=== PATIENT | male | born 1950 | race Caucasian/White ===

== ENCOUNTER 2021-03-18 09:04 | Emergency (ER) | payer MEDICARE, OTHER ==
[2021-03-18 10:16] LABS: BASO # 0.01 K/mm3 (0.02-0.10); EOS # 0.01 K/mm3 (0.04-0.40); EOS % 0.3 % (0.0-4.0); HEMATOCRIT 50.5 % (42.0-52.0); HEMOGLOBIN 16.9 g/dL (13.5-18.0); LYMPH# 0.84 K/mm3 (1.50-4.00); MEAN CELL VOLUME 99 fl (78-100); MEAN CORPUSCULAR HEMOGLOBIN 33 pg (27-31); MEAN CORPUSCULAR HGB CONC 34 g/dL (33-37); MEAN PLATELET VOLUME 9.8 fl (7.4-10.4); MONO # 0.37 K/mm3 (0.20-0.80); PLATELET COUNT 152 K/mm3 (130-400); RED BLOOD COUNT 5.11 M/mm3 (4.20-5.60); RED CELL DISTRIBUTION WIDTH 13.3 % (11.5-14.5); WHITE BLOOD COUNT 3.9 K/mm3 (4.8-10.8)
[2021-03-18 10:27] LABS: ALBUMIN 4.3 g/dL (3.4-4.8); POTASSIUM 3.8 mmol/L (3.5-5.1)
[2021-03-18 10:28] LABS: CALCIUM 9.1 mg/dL (8.3-10.5)
[2021-03-18 10:29] LABS: TOTAL PROTEIN 7.9 g/dL (6.2-8.1)
[2021-03-18 10:31] LABS: TOTAL BILIRUBIN 0.6 mg/dL (0.2-1.2)
[2021-03-18] MEDS ORDERED: PROAIR HFA0.09 MG/AC IH (10:39)
[2021-03-18] MEDS ORDERED: VOLTAREN ARTHRI20 GM TP (10:39)
[2021-03-18 10:49] VITALS: BP 132/82
== END 2021-03-18 10:50 | disposition home or self-care (01) ==
LOC: ED 09:04
PROVIDERS: Family Medicine
DX: U07.1 COVID-19 (principal); M94.0 Chondrocostal junction syndrome [Tietze]; I25.10 Atherosclerotic heart disease of native coronary artery without angina pectoris

== ENCOUNTER → 2021-10-26 | Outpatient (CLI) | payer MEDICARE, OTHER ==
[~2021-10-26] MED LIST: PROAIR HFA0.09 MG/AC IH; VOLTAREN ARTHRI20 GM TP
[2021-10-26 12:29] LABS: BASO # 0.03 K/mm3 (0.02-0.10); EOS # 0.35 K/mm3 (0.04-0.40); EOS % 4.9 % (0.0-4.0); HEMATOCRIT 45.3 % (42.0-52.0); HEMOGLOBIN 15.6 g/dL (13.5-18.0); LYMPH# 2.24 K/mm3 (1.50-4.00); MEAN CELL VOLUME 96 fl (78-100); MEAN CORPUSCULAR HEMOGLOBIN 33 pg (27-31); MEAN CORPUSCULAR HGB CONC 34 g/dL (33-37); MEAN PLATELET VOLUME 9.9 fl (7.4-10.4); MONO # 0.76 K/mm3 (0.20-0.80); PLATELET COUNT 203 K/mm3 (130-400); RED BLOOD COUNT 4.73 M/mm3 (4.20-5.60); RED CELL DISTRIBUTION WIDTH 13.1 % (11.5-14.5); WHITE BLOOD COUNT 7.1 K/mm3 (4.8-10.8)
[2021-10-26 12:47] LABS: ALBUMIN 4.2 g/dL (3.4-4.8); POTASSIUM 3.9 mmol/L (3.5-5.1); SODIUM 139 mmol/L (136-145)
[2021-10-26 12:48] LABS: CALCIUM 9.1 mg/dL (8.3-10.5)
[2021-10-26 12:50] LABS: GLUCOSE 98 mg/dL (75-110); TOTAL PROTEIN 7.1 g/dL (6.2-8.1)
[2021-10-26 12:51] LABS: CARBON DIOXIDE 19 mmol/L (23-31)
[2021-10-26 12:52] LABS: TOTAL BILIRUBIN 0.6 mg/dL (0.2-1.2)
[2021-10-26 12:55] LABS: AST-SGOT 20 U/L (5-34)
[2021-10-26 12:56] LABS: ALT/SGPT 22 U/L (0-55)
[2021-10-26 13:07] LABS: TROPONIN-I < 0.030 ng/mL (<0.030)
[2021-10-26 13:21] LABS: PROTHROMBIN TIME 10.1 SECONDS (9.0-12.0)
[2021-10-26 13:39] LABS: D-DIMER 0.12 mg/L FEU (0.15-0.50)
== END ==
LOC: LAB 12:11
PROVIDERS: Nurse Practitioner Primary Care
DX: R07.89 Other chest pain (principal)

== ENCOUNTER → 2022-04-26 | Outpatient (CLI) | payer MEDICARE, OTHER ==
[~2022-04-26] MED LIST changes: +AMLODIPINE BESY PO; +ATORVASTATIN CA20 MG PO; +BACTRIM DS TAB1 EACH PO; +ELIQUIS5 MG PO; +FLOMAX0.4 MG PO; +FUROSEMIDE20 MG PO; +LIDOCAINE HC20 MG/M1 MM; +MUPIROCIN2% TP; +PROTONIX TR40 M1 PO
== END ==
LOC: MSO 11:32
DX: R13.12 Dysphagia, oropharyngeal phase (principal)

== ENCOUNTER 2022-10-31 07:44 | Outpatient (RCR) | payer MEDICARE, OTHER | END 2022-11-17 | disposition home or self-care (01) | LOC: PT | DX: M54.50 Low back pain, unspecified (principal) ==

== ENCOUNTER → 2023-06-29 | Outpatient (CLI) | payer MEDICARE, OTHER | LOC: RAD 09:20 | DX: I11.9 Hypertensive heart disease without heart failure (principal) ==